=== PATIENT | male | born 1955 | race African-American/Black ===

== ENCOUNTER 2016-07-04 10:31 | Inpatient (IN) | payer OTHER ==
[2016-07-04 11:04] VITALS: BMI 26.4
--- NOTE | 2016-07-04 13:51 | HP ---
Admission [facility] Chief Complaint: DETOX TX FOR ALCOHOL Allergies/Adverse Reactions: Allergies Allergy/AdvReac Type Severity Reaction Status Date / Time zidovudine [From Retrovir] Allergy Severe Hives Verified 07/04/16 12:47 History of Present Illness: 60 Y/O AA/MALE WITH A HX OF ALCOHOL, HEROIN,COCAINE AND PERCOCETS DEPENDENCE SEEKING DETOX TX. TOX NEGATIVE FOR OPIOIDS. PT STATES HE IS ON ANTIBIOTICS FOR C/O FLANK PAIN "THEY SAY I HAVE AN INFECTION " . PT UNABLE TO STATE EXACT TYPE BUT CAME IN WITH AN ALMOST FULL BOTTLE OF CLINDAMYCIN. PT TO CONTINUE THERAPY WITH HIS MED. PT ALSO HAS A HX: HYPOKALEMIA Exam Limitations: No Limitations - Ebola screening Have you traveled outside of the country in the last 21 days: No Have you had contact with anyone from an Ebola affected area: No Have you been sick,other than usual withdrawal symptoms: No Do you have a fever: No - Review of Systems Constitutional: Chills, Night Sweats EENT: reports: Blurred Vision, Tearing, Nose Congestion, Dental Problems ( MISSING TEETH) Respiratory: reports: No Symptoms reported Cardiac: reports: Lightheadedness GI: reports: Constipated, Diarrhea, Nausea, Poor Appetite, Vomiting : reports: No Symptoms Reported Musculoskeletal: reports: Back Pain, Joint Pain, Muscle Pain, Other (HX NEUROPATHY) Integumentary: reports: Other (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) Neuro: reports: Headache, Numbness, Tingling, Tremors, Unsteady Gait, Dizziness , Other (HX NPERIPHERAL NEUROPATHY) Endocrine: reports: No Symptoms Reported Hematology: reports: No Symptoms Reported Psychiatric: reports: Orientated x3, Anxious, Depressed Other Systems: Reviewed and Negative Patient History - Patient Medical History Hx Anemia: No Hx Asthma: No Hx Chronic Obstructive Pulmonary Disease (COPD): No Hx Cancer: No Hx Cardiac Disorders: No Hx Congestive Heart Failure: No Hx Hypertension: Yes ( TAKES LISINOPRIL) Hx Hypercholesterolemia: No Hx Pacemaker: No HX Cerebrovascular Accident: No Hx Seizures: No Hx Dementia: No Hx Diabetes: Yes (TYPE 2 DM--METFORMIN ON HOLD BY PMD) Hx Gastrointestinal Disorders: Yes (GERD-OMEPRAZOLE) Hx Liver Disease: No Hx Genitourinary Disorders: No Hx Sexually Transmitted Disorders: No Hx Renal Disease (ESRD): No Hx Thyroid Disease: No Hx Human Immunodeficiency Virus (HIV): Yes (SINCE 1990;DX AIDS;ON TIVICAY.) Hx Hepatitis C: Yes (FAILED TX) Hx Depression: Yes (TAKES SEROQUEL FOR INSOMNIA) Hx Suicide Attempt: No (DENIES) Hx Bipolar Disorder: No Hx Schizophrenia: No Other Medical History: HX KAPOSI'S SARCOMA - Patient Surgical History Past Surgical History: No Hx Neurologic Surgery: No Hx Cataract Extraction: No Hx Cardiac Surgery: No Hx Lung Surgery: No Hx Breast Surgery: No Hx Breast Biopsy: No Hx Abdominal Surgery: No Hx Appendectomy: No Hx Cholecystectomy: No Hx Genitourinary Surgery: No Hx Orthopedic Surgery: No Anesthesia Reaction: No - PPD History Previous Implant?: Yes Documented Results: Negative w/proof Implanted On Prior [facility] Admission?: Yes Date: 02/05/16 Results: 0 mm PPD to be Administered?: No - Reproductive History Patient is a Female of Child Bearing Age (11 -55 yrs old): No (MALE) - Smoking Cessation Smoking history: Current every day smoker Have you smoked in the past 12 months: Yes Aproximately how many cigarettes per day: 20 Cigars Per Day: 0 Hx Chewing Tobacco Use: No Initiated information on smoking cessation: Yes 'Breaking Loose' booklet given: 07/04/16 - Substance & Tx. History Hx Alcohol Use: Yes (VODKA) Hx Substance Use: Yes (HEROIN/COCAINE/PERCOCETS) Substance Use Type: Alcohol, Cocaine, Heroin, Opiates Hx Substance Use Treatment: Yes ([facility]-DETOX) - Substances Abused Alcohol Route: Oral Frequency: Daily Amount used: 1 and 1/2 pints vodka Age of first use: 10 Date of Last Use: 07/03/16 Cocaine Route: Smoking Frequency: 3-6 times per week Amount used: $200 Age of first use: 12 Date of Last Use: 07/02/16 Heroin Route: Inhalation Frequency: 3-6 times per week Amount used: 3 bags Age of first use: 12 Date of Last Use: 07/02/16 Family Disease History - Family Disease History Family Disease History: Other: Father ( UNKNOWN CAUSE), Mother ( UNKNOWN CAUSE) Admission Physical Exam [facility] - Vital Signs Vital Signs: Vital Signs - 24 hr 07/04/16 11:02 Temperature 96.5 F L Pulse Rate 88 Respiratory 18 Rate Blood Pressure 140/96 - Physical General Appearance: Yes: Moderate Distress, Irritable, Anxious HEENTM: Yes: EOMI, Normocephalic, LEELA, Pharynx Normal, Nasal Congestion, Rhinorrhea Respiratory: Yes: Chest Non-Tender, Lungs Clear, Normal Breath Sounds, No Respiratory Distress Neck: Yes: No masses,lesions,Nodules, Supple, Trachea in good position Breast: Yes: Breast Exam Deferred Cardiology: Yes: Regular Rhythm, Regular Rate, S1, S2 Abdominal: Yes: Normal Bowel Sounds, Non Tender, Soft Genitourinary: Yes: Other (N/C) Back: Yes: Within Normal Limits Musculoskeletal: Yes: full range of Motion, Gait Steady Extremities: Yes: Normal Range of Motion, Non-Tender Neurological: Yes: anti tank missileman II-XII NML intact, Fully Oriented, Alert, Motor Strength 5/5 Integumentary: Yes: Dry, Warm Lymphatic: Yes: Within Normal Limits - Diagnostic (1) AIDS (acquired immunodeficiency syndrome), CD4 <=200 Current Visit: Yes Status: Chronic (2) Alcohol dependence with withdrawal Current Visit: Yes Status: Acute Qualifiers: Complication of substance-induced condition: uncomplicated Qualified Code(s): F10.230 - Alcohol dependence with withdrawal, uncomplicated (3) Nicotine dependence Current Visit: Yes Status: Acute Qualifiers: Nicotine product type: cigarettes Substance use status: in withdrawal Qualified Code(s): F17.213 - Nicotine dependence, cigarettes, with withdrawal (4) Cocaine dependence, uncomplicated Current Visit: Yes Status: Acute (5) Type 2 diabetes mellitus Current Visit: Yes Status: Chronic Comment: BLOOD SUGAR CURRENTLY UNDER CONTROL AND NOT TAKING METFORMIN 500 MG PO DAILY ANYMORE PER PATIENT. (6) History of Kaposi's sarcoma Current Visit: Yes Status: Acute Cleared for Admission [facility] - Detox or Rehab [facility] Level of Care: Medically Managed Detox Regimen/Protocol: Librium [facility] Breath Alcohol Content Breath Alcohol Content: 0 Urine Drug Screen - Results Drug Screen Negative: No Urine Drug Screen Results: YAMINI-Cocaine, BZO-Benzodiazepines
[2016-07-04] MEDS ORDERED: hydrOXYzine PAMOATE 25 MG CAPSULE (FP) PO PRN (14:01)
[2016-07-04] MEDS ORDERED: NICOTINE POLACRILEX 4 MG GUM BUC PRN (14:01)
[2016-07-04] MEDS ORDERED: MAG HYDROX/AL HYDROX/SIMETH 30 ML UNIT-DOSE CUP PO PRN (14:01)
[2016-07-04] MEDS ORDERED: guaiFENesin/D-METHORPHAN HB 10 ML UNIT-DOSE CUPS PO PRN (14:01)
[2016-07-04] MEDS ORDERED: LOPERAMIDE HCL 2 MG CAPSULE PO PRN (14:01)
[2016-07-04] MEDS ORDERED: MAGNESIUM HYDROX 2400MG/30ML ORAL SUSPENSION 30 ML CUP PO PRN (14:01)
[2016-07-04] MEDS ORDERED: chlordiazePOXIDE HCL 25 MG CAPSULE PO PRN (14:01)
[2016-07-04] MEDS ORDERED: IBUPROFEN 400 MG TABLET (FP) PO PRN (14:01)
[2016-07-04] MEDS ORDERED: ACETAMINOPHEN 325 MG TABLET (FP) PO PRN (14:01)
[2016-07-04] MEDS ORDERED: MAGNESIUM CITRATE 300 ML BOTTLE PO PRN (14:01)
[2016-07-04] MEDS ORDERED: P-EPHED 60MG/TRIPROLIDI 2.5MG TABLET PO PRN (14:01)
[2016-07-04] MEDS ORDERED: MENTHOL/PHENOL 1 EACH UD MM PRN (14:01)
[2016-07-04] MEDS ORDERED: chlordiazePOXIDE HCL 25 MG CAPSULE PO ONE (14:27)
[2016-07-04] MEDS: ASPIRIN 81 MG CHEWABLE TABLETS PO SCH (15:29)
[2016-07-04] MEDS: LISINOPRIL 10 MG TABLET (FP) PO SCH (15:29)
[2016-07-04] MEDS: GABAPENTIN 300 MG CAPSULE (FP) PO SCH ×2 (15:29→22:35)
[2016-07-04] MEDS: NICOTINE 21 MG/24 HOURS TOPICAL PATCH TD SCH (15:52)
[2016-07-04] MEDS: chlordiazePOXIDE HCL 25 MG CAPSULE PO SCH ×2 (17:20→22:34)
[2016-07-04] MEDS: PATIENT'S OWN MEDICATION (NON-FORMULARY) (Dolutegravir Sodium 50 MG) PO SCH (18:17)
[2016-07-04] MEDS: CLINDAMYCIN HCL 300 MG CAPSULE PO SCH (18:17)
[2016-07-04 18:55] LABS: URINE APPEARANCE CLEAR; URINE BILIRUBIN NEGATIVE (NEGATIVE); URINE BLOOD NEGATIVE (NEGATIVE); URINE COLOR AMBER; URINE GLUCOSE (UA) NEGATIVE (NEGATIVE); URINE KETONE NEGATIVE (NEGATIVE); URINE LEUK ESTERASE NEGATIVE (NEGATIVE); URINE NITRITE NEGATIVE (NEGATIVE); URINE UROBILINOGEN 4.0 E.U/dl E.U./dl (0.2-1.0)
[2016-07-04 19:20] LABS: URINE PROTEIN 2+ (NEGATIVE)
[2016-07-04 19:22] LABS: URINE MUCUS RARE; URINE RBC 2 /hpf (0-3); URINE WBC <1 /hpf (3-5)
[2016-07-04] MEDS: THIAMINE HCL 100 MG TABLET (FP) PO SCH (22:00)
[2016-07-04] MEDS ORDERED: diphenhydrAMINE HCL 25 MG CAPSULE (FP) PO PRN (22:08)
[2016-07-05] MEDS: CLINDAMYCIN HCL 300 MG CAPSULE PO SCH ×5 (00:01→23:08)
[2016-07-05] MEDS: GABAPENTIN 300 MG CAPSULE (FP) PO SCH ×3 (06:34→22:43)
[2016-07-05] MEDS: chlordiazePOXIDE HCL 25 MG CAPSULE PO SCH ×4 (06:34→22:43)
[2016-07-05 10:21] LABS: MCH 31.1 pg (25.7-33.7); MCHC 32.9 g/dl (32.0-35.9); MEAN CELL VOLUME 94.5 fl (80-96); MEAN PLT VOLUME 8.9 fl (7.5-11.1); PLATELET COUNT 138 K/MM3 (134-434); RDW 16.6 % (11.9-15.9); WHITE BLOOD COUNT 3.9 K/mm3 (4.0-10.0)
[2016-07-05] MEDS: LISINOPRIL 10 MG TABLET (FP) PO SCH (10:28)
[2016-07-05] MEDS: ASPIRIN 81 MG CHEWABLE TABLETS PO SCH (10:28)
[2016-07-05] MEDS: PRENATAL VITAMINS W/ FOLIC ACID TABLET (FP) PO SCH (10:28)
[2016-07-05] MEDS: PATIENT'S OWN MEDICATION (NON-FORMULARY) (Dolutegravir Sodium 50 MG) PO SCH (10:28)
[2016-07-05] MEDS: NICOTINE 21 MG/24 HOURS TOPICAL PATCH TD SCH (10:29)
--- NOTE | 2016-07-05 10:36 | CONSULT ---
[facility] Psychiatric Consult - Data Date of interview: 07/05/16 Admission source: [facility] Identifying data: First admission to [facility] for this 60 y/o AA male seeking detox treatment for alcohol,cocaine and opiate dependence.Patient is single without children,domiciled,disabled and supported on [employer] funds. Substance Abuse History: - Smoking Cessation. Smoking history: Current every day smoker. Have you smoked in the past 12 months: Yes. Aproximately how many cigarettes per day: 20. Cigars Per Day: 0. Hx Chewing Tobacco Use: No. Initiated information on smoking cessation: Yes. 'Breaking Loose' booklet given : 07/04/16. - Substance & Tx. History. Hx Alcohol Use: Yes (VODKA). Hx Substance Use: Yes (HEROIN/COCAINE/PERCOCETS). Substance Use Type: Alcohol, Cocaine, Heroin, Opiates. Hx Substance Use Treatment: Yes ([facility]DETOX). - Substances Abused. Alcohol. Route: Oral. Frequency: Daily. Amount used: 1 and 1/2 pints vodka. Age of first use: 10. Date of Last Use: 07/03/16. Cocaine. Route: Smoking. Frequency: 3-6 times per week. Amount used: $200. Age of first use: 12. Date of Last Use: 07/02/16. Heroin. Route: Inhalation. Frequency: 3-6 times per week. Amount used: 3 bags. Age of first use: 12. Date of Last Use: 07/02/16. Confirmed by patient. Medical History: HIV infection since 1990 (on ART agents),hepatitis C,GERD, hypertension,diabetes mellitus,neuropathy and a past history of Kaposi's sarcoma. Psychiatric History: Patient denies. Physical/Sexual Abuse/Trauma History: Patient denies. Additional Comment: Urine Drug Screen Results: YAMINI-Cocaine, BZO- Benzodiazepines.Noted. Mental Status Exam - Mental Status Exam Alert and Oriented to: Time, Place, Person Cognitive Function: Grossly Intact Patient Appearance: Unkempt, Disheveled Mood: Hostile, Irritable Affect: Mood Congruent, Blunted Patient Behavior: Fatigued, Uncooperative Speech Pattern: Clear Voice Loudness: Moderately Soft/Quiet Thought Process: Goal Oriented Thought Disorder: Not Present Hallucinations: Denies Suicidal Ideation: Denies Homicidal Ideation: Denies Insight/Judgement: Poor Sleep: Well Appetite: Good Gait/Station: Other (walks with a cane) Psychiatric Findings - Problem List ([place] 1, 2,3) (1) Alcohol dependence with withdrawal Current Visit: Yes Status: Acute Qualifiers: Complication of substance-induced condition: uncomplicated Qualified Code(s): F10.230 - Alcohol dependence with withdrawal, uncomplicated (2) Cocaine dependence, uncomplicated Current Visit: Yes Status: Acute (3) Nicotine dependence Current Visit: Yes Status: Acute Qualifiers: Nicotine product type: cigarettes Substance use status: in withdrawal Qualified Code(s): F17.213 - Nicotine dependence, cigarettes, with withdrawal (4) History of Kaposi's sarcoma Current Visit: Yes Status: Chronic (5) AIDS (acquired immunodeficiency syndrome), CD4 <=200 Current Visit: Yes Status: Chronic (6) Type 2 diabetes mellitus Current Visit: Yes Status: Chronic Comment: BLOOD SUGAR CURRENTLY UNDER CONTROL AND NOT TAKING METFORMIN 500 MG PO DAILY ANYMORE PER PATIENT. (7) Dry skin dermatitis Current Visit: Yes Status: Suspected - Initial Treatment Plan Initial Treatment Plan: Psychoeducation.Detoxification.Observation.
[2016-07-05 11:08] LABS: ALBUMIN 2.7 g/dl (3.4-5.0); ALK PHOS 91 U/L (45-117); ANION GAP 11 (8-16); BILIRUBIN,TOTAL 0.5 mg/dL (0.2-1.0); CALCIUM 7.9 mg/dL (8.5-10.1); CO2 23 mmol/L (21-32); CREATININE 0.6 mg/dL (0.7-1.3); GLUCOSE,RANDOM 114 mg/dL (74-106); SGOT/AST 49 U/L (15-37); SGPT/ALT 33 U/L (12-78); TOT PROT 6.5 g/dl (6.4-8.2)
--- NOTE | 2016-07-05 12:34 | EKG ---
Test Reason : Blood Pressure : / mmHG Vent. Rate : 089 BPM Atrial Rate : 089 BPM P-R Int : 184 ms QRS Dur : 090 ms QT Int : 400 ms P-R-T Axes : 055 032 045 degrees QTc Int : 486 ms NORMAL SINUS RHYTHM POSSIBLE LEFT ATRIAL ENLARGEMENT NONSPECIFIC T WAVE ABNORMALITY PROLONGED QT ABNORMAL ECG NO PREVIOUS ECGS AVAILABLE Confirmed by MIKE MILTON MD ([id number]) on 07/05/2016 12:34:10 PM Referred By: Confirmed By:MIKE MILTON MD
--- NOTE | 2016-07-05 15:27 | PN ---
[facility] CIWA - CIWA Score Nausea/Vomitin-No Nausea/No Vomiting Muscle Tremors: 4-Moderate,w/Arms Extend Anxiety: 3 Agitation: 3 Paroxysmal Sweats: 3 Orientation: 0-Oriented Tacttile Disturbances: 0-None Auditory Disturbances: 0-None Visual Disturbances: 0-None Headache: 0-None Present CIWA-Ar Total Score: 13 S Progress Note (SOAP) Subjective: Anxiety,tremors,sweating,interrupted sleep,restless Objective: 07/05/16 15:25 Vital Signs - 8 hr 07/05/16 09:38 Temperature 97.4 F L Pulse Rate 88 Respiratory 18 Rate Blood Pressure 151/92 Laboratory Tests 07/04/16 07/04/16 07/04/16 13:00 15:05 16:30 WBC RBC Hgb Hct MCV MCHC RDW Plt Count MPV Sodium Potassium Chloride Carbon Dioxide Anion Gap BUN Creatinine Creat Clearance w eGFR POC Glucometer 89 101 Random Glucose Calcium Total Bilirubin AST ALT Alkaline Phosphatase Total Protein Albumin Urine Color Irene Urine Appearance Clear Urine pH 5.0 Ur Specific [place] 1.015 Urine Protein 2+ H Urine Glucose (UA) Negative Urine Ketones Negative Urine Blood Negative Urine Nitrite Negative Urine Bilirubin Negative Urine Urobilinogen 4.0 e.u/dl Ur Leukocyte Esterase Negative Urine RBC 2 Urine WBC <1 Ur Epithelial Cells Rare Urine Mucus Rare RPR Titer 07/05/16 07/05/16 07/05/16 06:37 07:00 07:00 WBC 3.9 L RBC 4.06 Hgb 12.6 D Hct 38.4 D MCV 94.5 MCHC 32.9 RDW 16.6 H Plt Count 138 D MPV 8.9 Sodium 143 Potassium 3.4 L Chloride 109 H Carbon Dioxide 23 Anion Gap 11 BUN 8 Creatinine 0.6 L Creat Clearance w eGFR > 60 POC Glucometer 111 Random Glucose 114 H Calcium 7.9 L Total Bilirubin 0.5 AST 49 H D ALT 33 D Alkaline Phosphatase 91 Total Protein 6.5 Albumin 2.7 L Urine Color Urine Appearance Urine pH Ur Specific [place] Urine Protein Urine Glucose (UA) Urine Ketones Urine Blood Urine Nitrite Urine Bilirubin Urine Urobilinogen Ur Leukocyte Esterase Urine RBC Urine WBC Ur Epithelial Cells Urine Mucus RPR Titer 07/05/16 07:00 WBC RBC Hgb Hct MCV MCHC RDW Plt Count MPV Sodium Potassium Chloride Carbon Dioxide Anion Gap BUN Creatinine Creat Clearance w eGFR POC Glucometer Random Glucose Calcium Total Bilirubin AST ALT Alkaline Phosphatase Total Protein Albumin Urine Color Urine Appearance Urine pH Ur Specific [place] Urine Protein Urine Glucose (UA) Urine Ketones Urine Blood Urine Nitrite Urine Bilirubin Urine Urobilinogen Ur Leukocyte Esterase Urine RBC Urine WBC Ur Epithelial Cells Urine Mucus RPR Titer Nonreactive labs noted Assessment: 07/05/16 15:27 Withdrawal sx. Plan: Continue detox
[2016-07-05] MEDS: THIAMINE HCL 100 MG TABLET (FP) PO SCH (22:43)
[2016-07-05] MEDS: diphenhydrAMINE HCL 50 MG CAPSULE PO PRN (22:44)
[2016-07-06] MEDS: chlordiazePOXIDE HCL 25 MG CAPSULE PO SCH ×2 (06:04→10:28)
[2016-07-06] MEDS: GABAPENTIN 300 MG CAPSULE (FP) PO SCH ×3 (06:04→22:25)
[2016-07-06] MEDS: CLINDAMYCIN HCL 300 MG CAPSULE PO SCH ×4 (06:22→23:08)
[2016-07-06] MEDS: ASPIRIN 81 MG CHEWABLE TABLETS PO SCH (10:27)
[2016-07-06] MEDS: PATIENT'S OWN MEDICATION (NON-FORMULARY) (Dolutegravir Sodium 50 MG) PO SCH (10:27)
[2016-07-06] MEDS: PRENATAL VITAMINS W/ FOLIC ACID TABLET (FP) PO SCH (10:27)
[2016-07-06] MEDS: LISINOPRIL 10 MG TABLET (FP) PO SCH (10:28)
[2016-07-06] MEDS: NICOTINE 21 MG/24 HOURS TOPICAL PATCH TD SCH (10:28)
[2016-07-06] MEDS: AMMONIUM LACTATE 12% LOTION 225 GM BOTTLE TP SCH ×2 (11:03→22:25)
--- NOTE | 2016-07-06 14:06 | PN ---
[facility] CIWA - CIWA Score Nausea/Vomitin Muscle Tremors: 3 Anxiety: 4-Mod. Anxious/Guarded Agitation: 3 Paroxysmal Sweats: 3 Orientation: 0-Oriented Tacttile Disturbances: 3-Moderate Itch/Numb/Burn Auditory Disturbances: 0-None Visual Disturbances: 0-None Headache: 0-None Present CIWA-Ar Total Score: 21 S Progress Note (SOAP) Subjective: Diarrhea, Vomiting, Sweating, Body Aches, Tremors. Objective: PT. A & O X 3, OBSERVED AMBULATING ON UNIT WITH ASSISTANCE OF CANE. 07/06/16 14:04 Laboratory Last Values WBC 3.9 K/mm3 (4.0-10.0) L 07/05/16 07:00 RBC 4.06 M/mm3 (4.00-5.60) 07/05/16 07:00 Hgb 12.6 GM/dL (11.7-16.9) D 07/05/16 07:00 Hct 38.4 % (35.4-49) D 07/05/16 07:00 MCV 94.5 fl (80-96) 07/05/16 07:00 MCHC 32.9 g/dl (32.0-35.9) 07/05/16 07:00 RDW 16.6 % (11.9-15.9) H 07/05/16 07:00 Plt Count 138 K/MM3 (134-434) D 07/05/16 07:00 MPV 8.9 fl (7.5-11.1) 07/05/16 07:00 Sodium 143 mmol/L (136-145) 07/05/16 07:00 Potassium 3.4 mmol/L (3.5-5.1) L 07/05/16 07:00 Chloride 109 mmol/L (98-107) H 07/05/16 07:00 Carbon Dioxide 23 mmol/L (21-32) 07/05/16 07:00 Anion Gap 11 (8-16) 07/05/16 07:00 BUN 8 mg/dL (7-18) 07/05/16 07:00 Creatinine 0.6 mg/dL (0.7-1.3) L 07/05/16 07:00 Creat Clearance w eGFR > 60 (>60) 07/05/16 07:00 POC Glucometer 101 UNITS (()) 07/06/16 06:03 Random Glucose 114 mg/dL (74-106) H 07/05/16 07:00 Calcium 7.9 mg/dL (8.5-10.1) L 07/05/16 07:00 Total Bilirubin 0.5 mg/dL (0.2-1.0) 07/05/16 07:00 AST 49 U/L (15-37) H D 07/05/16 07:00 ALT 33 U/L (12-78) D 07/05/16 07:00 Alkaline Phosphatase 91 U/L (45-117) 07/05/16 07:00 Total Protein 6.5 g/dl (6.4-8.2) 07/05/16 07:00 Albumin 2.7 g/dl (3.4-5.0) L 07/05/16 07:00 Urine Color Irene 07/04/16 13:00 Urine Appearance Clear 07/04/16 13:00 Urine pH 5.0 (5.0-8.0) 07/04/16 13:00 Ur Specific [place] 1.015 (1.001-1.035) 07/04/16 13:00 Urine Protein 2+ (NEGATIVE) H 07/04/16 13:00 Urine Glucose (UA) Negative (NEGATIVE) 07/04/16 13:00 Urine Ketones Negative (NEGATIVE) 07/04/16 13:00 Urine Blood Negative (NEGATIVE) 07/04/16 13:00 Urine Nitrite Negative (NEGATIVE) 07/04/16 13:00 Urine Bilirubin Negative (NEGATIVE) 07/04/16 13:00 Urine Urobilinogen 4.0 e.u/dl E.U./dl (0.2-1.0) 07/04/16 13:00 Ur Leukocyte Esterase Negative (NEGATIVE) 07/04/16 13:00 Urine RBC 2 /hpf (0-3) 07/04/16 13:00 Urine WBC <1 /hpf (3-5) 07/04/16 13:00 Ur Epithelial Cells Rare /hpf (FEW) 07/04/16 13:00 Urine Mucus Rare 07/04/16 13:00 RPR Titer Nonreactive (NONREACTIVE) 07/05/16 07:00 LABS NOTED. Assessment: 07/06/16 14:07 WITHDRAWAL SYMPTOMS. Plan: CONTINUE DETOX. K, 20 MEQ BID. PRN IMMODIUM FOR DIARRHEA. ADVISED PATIENT TO FOLLOW-UP WITH [facility] / REHAB MEDICAL PROVIDER AFTER DISCHARGE FROM DETOX FOR GENERAL MEDICAL ASSESSMENT AND FOR ANY ABNORMAL ADMISSION LAB VALUES.
[2016-07-06] MEDS ORDERED: POTASSIUM CHLORIDE TABS 20 MEQ TABLET.ER (FP) PO ONE (15:00)
[2016-07-06] MEDS: chlordiazePOXIDE 5 MG CAPSULE PO SCH ×2 (17:39→22:25)
[2016-07-06] MEDS: THIAMINE HCL 100 MG TABLET (FP) PO SCH (22:24)
[2016-07-06] MEDS: diphenhydrAMINE HCL 50 MG CAPSULE PO PRN (22:24)
[2016-07-06] MEDS: POTASSIUM CHLORIDE TABS 20 MEQ TABLET.ER (FP) PO SCH (22:25)
[2016-07-07] MEDS: GABAPENTIN 300 MG CAPSULE (FP) PO SCH ×3 (05:50→22:29)
[2016-07-07] MEDS: chlordiazePOXIDE 5 MG CAPSULE PO SCH ×2 (05:50→10:25)
[2016-07-07] MEDS: CLINDAMYCIN HCL 300 MG CAPSULE PO SCH ×4 (05:50→23:06)
[2016-07-07] MEDS ORDERED: cloNIDine HCL 0.1 MG TABLET PO ONE (07:30)
--- NOTE | 2016-07-07 07:47 | PN ---
[facility] Progress Note Note: Last Vital Signs Temp Pulse Resp BP Pulse Ox 96.4 F L 88 18 154/100 07/07/16 06:44 07/07/16 06:44 07/07/16 06:44 07/07/16 06:44 BP ELEVATED 0.1MG OF CLONIDINE ONE TIME DOSE ORDERED WILL CONTINUE TO MONITOR
[2016-07-07] MEDS: NICOTINE 21 MG/24 HOURS TOPICAL PATCH TD SCH (10:25)
[2016-07-07] MEDS: PRENATAL VITAMINS W/ FOLIC ACID TABLET (FP) PO SCH (10:25)
[2016-07-07] MEDS: PATIENT'S OWN MEDICATION (NON-FORMULARY) (Dolutegravir Sodium 50 MG) PO SCH (10:25)
[2016-07-07] MEDS: ASPIRIN 81 MG CHEWABLE TABLETS PO SCH (10:25)
[2016-07-07] MEDS: AMMONIUM LACTATE 12% LOTION 225 GM BOTTLE TP SCH ×2 (10:25→23:07)
[2016-07-07] MEDS: LISINOPRIL 10 MG TABLET (FP) PO SCH (10:25)
[2016-07-07] MEDS: POTASSIUM CHLORIDE TABS 20 MEQ TABLET.ER (FP) PO SCH ×2 (10:25→22:29)
--- NOTE | 2016-07-07 15:45 | PN ---
[facility] Progress Note (SOAP) Subjective: Interrupted sleep, Diarrhea, Body aches, Back Ache. Objective: PT. A & O X 3, OBSERVED AMBULATING ON UNIT WITH ASSISTANCE OF A CANE. 07/07/16 15:44 Vital Signs Temperature 98.2 F 07/07/16 13:26 Pulse Rate 80 07/07/16 13:26 Respiratory Rate 20 07/07/16 13:26 Blood Pressure 149/93 07/07/16 13:31 O2 Sat by Pulse Oximetry (%) Laboratory Last Values WBC 3.9 K/mm3 (4.0-10.0) L 07/05/16 07:00 RBC 4.06 M/mm3 (4.00-5.60) 07/05/16 07:00 Hgb 12.6 GM/dL (11.7-16.9) D 07/05/16 07:00 Hct 38.4 % (35.4-49) D 07/05/16 07:00 MCV 94.5 fl (80-96) 07/05/16 07:00 MCHC 32.9 g/dl (32.0-35.9) 07/05/16 07:00 RDW 16.6 % (11.9-15.9) H 07/05/16 07:00 Plt Count 138 K/MM3 (134-434) D 07/05/16 07:00 MPV 8.9 fl (7.5-11.1) 07/05/16 07:00 Sodium 143 mmol/L (136-145) 07/05/16 07:00 Potassium 3.4 mmol/L (3.5-5.1) L 07/05/16 07:00 Chloride 109 mmol/L (98-107) H 07/05/16 07:00 Carbon Dioxide 23 mmol/L (21-32) 07/05/16 07:00 Anion Gap 11 (8-16) 07/05/16 07:00 BUN 8 mg/dL (7-18) 07/05/16 07:00 Creatinine 0.6 mg/dL (0.7-1.3) L 07/05/16 07:00 Creat Clearance w eGFR > 60 (>60) 07/05/16 07:00 POC Glucometer 118 UNITS (()) 07/07/16 05:52 Random Glucose 114 mg/dL (74-106) H 07/05/16 07:00 Calcium 7.9 mg/dL (8.5-10.1) L 07/05/16 07:00 Total Bilirubin 0.5 mg/dL (0.2-1.0) 07/05/16 07:00 AST 49 U/L (15-37) H D 07/05/16 07:00 ALT 33 U/L (12-78) D 07/05/16 07:00 Alkaline Phosphatase 91 U/L (45-117) 07/05/16 07:00 Total Protein 6.5 g/dl (6.4-8.2) 07/05/16 07:00 Albumin 2.7 g/dl (3.4-5.0) L 07/05/16 07:00 Urine Color Irene 07/04/16 13:00 Urine Appearance Clear 07/04/16 13:00 Urine pH 5.0 (5.0-8.0) 07/04/16 13:00 Ur Specific [place] 1.015 (1.001-1.035) 07/04/16 13:00 Urine Protein 2+ (NEGATIVE) H 07/04/16 13:00 Urine Glucose (UA) Negative (NEGATIVE) 07/04/16 13:00 Urine Ketones Negative (NEGATIVE) 07/04/16 13:00 Urine Blood Negative (NEGATIVE) 07/04/16 13:00 Urine Nitrite Negative (NEGATIVE) 07/04/16 13:00 Urine Bilirubin Negative (NEGATIVE) 07/04/16 13:00 Urine Urobilinogen 4.0 e.u/dl E.U./dl (0.2-1.0) 07/04/16 13:00 Ur Leukocyte Esterase Negative (NEGATIVE) 07/04/16 13:00 Urine RBC 2 /hpf (0-3) 07/04/16 13:00 Urine WBC <1 /hpf (3-5) 07/04/16 13:00 Ur Epithelial Cells Rare /hpf (FEW) 07/04/16 13:00 Urine Mucus Rare 07/04/16 13:00 RPR Titer Nonreactive (NONREACTIVE) 07/05/16 07:00 LABS NOTED. Assessment: 07/07/16 15:44 WITHDRAWAL SYMPTOMS. Plan: CONTINUE DETOX. PRN IMMODIUM FOR DIARRHEA. ADVISED PATIENT TO FOLLOW-UP WITH [facility] / REHAB MEDICAL PROVIDER AFTER DISCHARGER FROM DETOX FOR GENERAL MEDICAL ASSESSMENT AND FOR ABNORMAL ADMISSION LAB VALUES.
[2016-07-07] MEDS: chlordiazePOXIDE HCL 10 MG CAPSULE PO SCH ×2 (17:44→22:29)
[2016-07-07] MEDS: THIAMINE HCL 100 MG TABLET (FP) PO SCH (22:29)
[2016-07-07] MEDS: diphenhydrAMINE HCL 50 MG CAPSULE PO PRN (22:30)
[2016-07-08] MEDS: CLINDAMYCIN HCL 300 MG CAPSULE PO SCH (05:59)
[2016-07-08] MEDS: GABAPENTIN 300 MG CAPSULE (FP) PO SCH (05:59)
[2016-07-08] MEDS: chlordiazePOXIDE HCL 10 MG CAPSULE PO SCH ×3 (06:00→10:24)
[2016-07-08] MEDS: PRENATAL VITAMINS W/ FOLIC ACID TABLET (FP) PO SCH (10:23)
[2016-07-08] MEDS: POTASSIUM CHLORIDE TABS 20 MEQ TABLET.ER (FP) PO SCH (10:23)
[2016-07-08] MEDS: AMMONIUM LACTATE 12% LOTION 225 GM BOTTLE TP SCH (10:23)
[2016-07-08] MEDS: NICOTINE 21 MG/24 HOURS TOPICAL PATCH TD SCH (10:23)
[2016-07-08] MEDS: PATIENT'S OWN MEDICATION (NON-FORMULARY) (Dolutegravir Sodium 50 MG) PO SCH (10:23)
[2016-07-08] MEDS: ASPIRIN 81 MG CHEWABLE TABLETS PO SCH (10:23)
[2016-07-08] MEDS: LISINOPRIL 10 MG TABLET (FP) PO SCH (10:24)
[2016-07-08 10:44] VITALS: BP 163/108; PULSE 86; TEMP 95.5
--- NOTE | 2016-07-08 12:45 | DS ---
[facility] Detox Discharge Summary Admission Date: 07/04/16 Discharge Date: 07/08/16 - History Present History: Alcohol Dependence, Cocaine Dependence, Opioid Dependence Pertinent Past History: HTN DMT2 GERD Hepatitis C HIV/AIDS Hypokalemia: replenished during hospital stay - Physical Exam Results Vital Signs: Vital Signs Temperature 95.5 F L 07/08/16 10:44 Pulse Rate 86 07/08/16 10:44 Respiratory Rate 20 07/08/16 10:44 Blood Pressure 163/108 07/08/16 10:44 O2 Sat by Pulse Oximetry (%) Pertinent Admission Physical Exam Findings: Withdrawal symptoms Laboratory Tests 07/04/16 07/04/16 07/04/16 13:00 15:05 16:30 WBC RBC Hgb Hct MCV MCHC RDW Plt Count MPV Sodium Potassium Chloride Carbon Dioxide Anion Gap BUN Creatinine Creat Clearance w eGFR POC Glucometer 89 101 Random Glucose Calcium Total Bilirubin AST ALT Alkaline Phosphatase Total Protein Albumin Urine Color Irene Urine Appearance Clear Urine pH 5.0 Ur Specific [place] 1.015 Urine Protein 2+ H Urine Glucose (UA) Negative Urine Ketones Negative Urine Blood Negative Urine Nitrite Negative Urine Bilirubin Negative Urine Urobilinogen 4.0 e.u/dl Ur Leukocyte Esterase Negative Urine RBC 2 Urine WBC <1 Ur Epithelial Cells Rare Urine Mucus Rare RPR Titer 07/05/16 07/05/16 07/05/16 06:37 07:00 07:00 WBC 3.9 L RBC 4.06 Hgb 12.6 D Hct 38.4 D MCV 94.5 MCHC 32.9 RDW 16.6 H Plt Count 138 D MPV 8.9 Sodium 143 Potassium 3.4 L Chloride 109 H Carbon Dioxide 23 Anion Gap 11 BUN 8 Creatinine 0.6 L Creat Clearance w eGFR > 60 POC Glucometer 111 Random Glucose 114 H Calcium 7.9 L Total Bilirubin 0.5 AST 49 H D ALT 33 D Alkaline Phosphatase 91 Total Protein 6.5 Albumin 2.7 L Urine Color Urine Appearance Urine pH Ur Specific [place] Urine Protein Urine Glucose (UA) Urine Ketones Urine Blood Urine Nitrite Urine Bilirubin Urine Urobilinogen Ur Leukocyte Esterase Urine RBC Urine WBC Ur Epithelial Cells Urine Mucus RPR Titer 07/05/16 07/05/16 07/06/16 07:00 16:22 06:03 WBC RBC Hgb Hct MCV MCHC RDW Plt Count MPV Sodium Potassium Chloride Carbon Dioxide Anion Gap BUN Creatinine Creat Clearance w eGFR POC Glucometer 100 101 Random Glucose Calcium Total Bilirubin AST ALT Alkaline Phosphatase Total Protein Albumin Urine Color Urine Appearance Urine pH Ur Specific [place] Urine Protein Urine Glucose (UA) Urine Ketones Urine Blood Urine Nitrite Urine Bilirubin Urine Urobilinogen Ur Leukocyte Esterase Urine RBC Urine WBC Ur Epithelial Cells Urine Mucus RPR Titer Nonreactive 07/06/16 07/07/16 07/07/16 16:37 05:52 16:23 WBC RBC Hgb Hct MCV MCHC RDW Plt Count MPV Sodium Potassium Chloride Carbon Dioxide Anion Gap BUN Creatinine Creat Clearance w eGFR POC Glucometer 158 118 95 Random Glucose Calcium Total Bilirubin AST ALT Alkaline Phosphatase Total Protein Albumin Urine Color Urine Appearance Urine pH Ur Specific [place] Urine Protein Urine Glucose (UA) Urine Ketones Urine Blood Urine Nitrite Urine Bilirubin Urine Urobilinogen Ur Leukocyte Esterase Urine RBC Urine WBC Ur Epithelial Cells Urine Mucus RPR Titer 07/08/16 05:58 WBC RBC Hgb Hct MCV MCHC RDW Plt Count MPV Sodium Potassium Chloride Carbon Dioxide Anion Gap BUN Creatinine Creat Clearance w eGFR POC Glucometer 184 Random Glucose Calcium Total Bilirubin AST ALT Alkaline Phosphatase Total Protein Albumin Urine Color Urine Appearance Urine pH Ur Specific [place] Urine Protein Urine Glucose (UA) Urine Ketones Urine Blood Urine Nitrite Urine Bilirubin Urine Urobilinogen Ur Leukocyte Esterase Urine RBC Urine WBC Ur Epithelial Cells Urine Mucus RPR Titer Labs noted: K 3.4 - Treatment Hospital Course: Detox Protocol Followed, Detoxed Safely, Responded well, Discharged Condition Good - Medication Discharge Medications: Ambulatory Orders Aspirin [ASA -] 81 mg PO DAILY 07/04/16 Clindamycin [Cleocin -] 600 mg PO Q6H 07/04/16 Dolutegravir Sodium [Tivicay] 50 mg PO DAILY 07/04/16 Gabapentin [Neurontin -] 300 mg PO Q8H 07/04/16 Lisinopril [Prinivil] 10 mg PO DAILY 07/04/16 Omeprazole 40 mg PO DAILY 07/04/16 Risperidone [Risperdal] 1 mg PO BID 07/04/16 - Diagnosis (1) Cocaine dependence, uncomplicated Current Visit: Yes Status: Chronic (2) Nicotine dependence Current Visit: Yes Status: Chronic Qualifiers: Nicotine product type: cigarettes Substance use status: in withdrawal Qualified Code(s): F17.213 - Nicotine dependence, cigarettes, with withdrawal (3) Type 2 diabetes mellitus Current Visit: Yes Status: Chronic Qualifiers: Diabetes mellitus complication status: without complication (4) Alcohol dependence with uncomplicated withdrawal Current Visit: Yes Status: Acute (5) Hypertension, essential Current Visit: Yes Status: Chronic (6) GERD (gastroesophageal reflux disease) Current Visit: Yes Status: Chronic (7) Depression Current Visit: Yes Status: Chronic (8) Hepatitis C virus infection without hepatic coma Current Visit: Yes Status: Chronic Qualifiers: Viral hepatitis chronicity: chronic Qualified Code(s): B18.2 - Chronic viral hepatitis C (9) Hypokalemia Current Visit: Yes Status: Acute (10) Opioid dependence Current Visit: Yes Status: Chronic (11) AIDS (acquired immune deficiency syndrome) Current Visit: Yes Status: Chronic - AMA Did Patient Leave Against Medical Advice: No
== END 2016-07-08 12:40 | disposition other institution (70) | DRG 773 ==
LOC: YASAS 10:31 → Y3N 14:24
PROVIDERS: ADMIT Internal Medicine; ATTEND Internal Medicine
PROC: HZ2ZZZZ Detoxification Services for Substance Abuse Treatment (ICD-10-PCS; principal; 2016-07-04)
DX: F10.230 Alcohol dependence with withdrawal, uncomplicated (principal); F11.20 Opioid dependence, uncomplicated; F14.20 Cocaine dependence, uncomplicated; F12.20 Cannabis dependence, uncomplicated; F17.210 Nicotine dependence, cigarettes, uncomplicated; F32.9 Major depressive disorder, single episode, unspecified; B20 Human immunodeficiency virus [HIV] disease; E11.9 Type 2 diabetes mellitus without complications; I10 Essential (primary) hypertension; K21.9 Gastro-esophageal reflux disease without esophagitis; B18.2 Chronic viral hepatitis C; E87.6 Hypokalemia; L85.3 Xerosis cutis
CPT/HCPCS: 36415; 80053; 81003; 81015; 85027; 86593; 93005; 93010

== ENCOUNTER 2016-07-08 12:59 | Inpatient (IN) | payer OTHER ==
[2016-07-08] MEDS ORDERED: PT OWN MED DRAWER 7, Y5N ONE ×2 (14:53→22:15)
--- NOTE | 2016-07-08 15:04 | HP ---
[facility] Rehab Assess/Revision - Admission History Admitted to Rehab from: [facility] Date of Admission to Rehab: 07/09/16 - Vital signs Vital Signs: Vital Signs Period Temp Pulse Resp BP Sys/Bosch Pulse Ox Last 24 Hr 98.6 F 86 20 140/90 - Findings Detox History & Physical reviewed: Yes Concur with findings: Yes Comments/Additional Findings: for rehab as protocol
[2016-07-08] MEDS: GABAPENTIN 300 MG CAPSULE (FP) PO SCH ×2 (15:46→22:11)
[2016-07-08] MEDS ORDERED: P-EPHED 60MG/TRIPROLIDI 2.5MG TABLET PO PRN (22:48)
[2016-07-08] MEDS ORDERED: guaiFENesin/D-METHORPHAN HB 10 ML UNIT-DOSE CUPS PO PRN (22:48)
[2016-07-08] MEDS ORDERED: MAGNESIUM HYDROX 2400MG/30ML ORAL SUSPENSION 30 ML CUP PO PRN (22:48)
[2016-07-08] MEDS ORDERED: MAG HYDROX/AL HYDROX/SIMETH 30 ML UNIT-DOSE CUP PO PRN (22:48)
[2016-07-08] MEDS ORDERED: hydrOXYzine PAMOATE 50 MG CAPSULE (FP) PO PRN (22:48)
[2016-07-08] MEDS ORDERED: LOPERAMIDE HCL 2 MG CAPSULE PO PRN (22:48)
[2016-07-08] MEDS ORDERED: MAGNESIUM CITRATE 300 ML BOTTLE PO PRN (22:48)
[2016-07-08] MEDS ORDERED: IBUPROFEN 400 MG TABLET (FP) PO PRN (22:48)
[2016-07-08] MEDS ORDERED: MENTHOL/PHENOL 1 EACH UD MM PRN (22:48)
[2016-07-08] MEDS ORDERED: ACETAMINOPHEN 325 MG TABLET (FP) PO PRN (22:48)
[2016-07-09] MEDS: GABAPENTIN 300 MG CAPSULE (FP) PO SCH ×3 (06:03→21:04)
--- NOTE | 2016-07-09 07:06 | HP ---
Psychiatrist Admission - Data Date of interview: 07/09/16 Admission source: 3N Identifying data: This is the second [facility] admission for this 60 years old single Black male, unemployed on HASA, domiciled seeking rehab treatment for alcohol, heroin and cocaine Medical History: Significant for HTN, type 2 DM, GERD, Hep C, AIDS, Kaposi Sarcoma and dry skin Dermatitis . Smokes 1ppd Psychiatric History: Reports being diagnosed with Schizophrenia approximately 10 years ago. Reports 5 previous psychiatric admissions all to [facility]. Claims that most recent one was in in June 2016 for hearing voices. Reports that he stayed there for 2-3 weeks and treated with Zyprexa and Celexa. Told commercial lines underwriter that he does not recall dosages of these medications. Reports that he is non-compliant to psychiatric services and medication. He linn not want to take psychotropic medication at this time. Denies previous history of suicidal attempt. At present, denies experiences psychotic symptoms as well as SI/HI Physical/Sexual Abuse/Trauma History: Denies history of emotional, physical or sexual abuse as well as DV relationship Additional Comment: Denies any criminal history Vital Signs: Vital Signs - 24 hr 07/08/16 07/09/16 07/09/16 13:34 00:30 03:30 Temperature 98.6 F Pulse Rate 86 Respiratory 20 18 17 Rate Blood Pressure 140/90 Allergies/Adverse Reactions: Allergies Allergy/AdvReac Type Severity Reaction Status Date / Time zidovudine [From Retrovir] Allergy Severe Hives Verified 07/04/16 12:47 Date of last physical exam: 07/04/16 Concur with the findings of this exam: Yes - Substance Abuse/Tx History Hx Alcohol Use: Yes Hx Substance Use: Yes Substance Use Type: Alcohol (Started drinking alcohol at age 10, consumes i.5 pints of vodka daily. Last drink on 07/03/16), Cocaine (Started smoking crack cocaine at age 12, consumes $200 worth 3-6 times weekly. Last Smoked on 07/02/16) , Heroin (Started using heroin at age 12, Consumes 3 bags 3-6 times weekly. Last used on 07/02/16) Hx Substance Use Treatment: Yes (One inpt detox & one inpt rehab @ [facility]) - Admission Criteria Previous failed treatment: Yes Poor recovery environment: Yes Comorbidities: Yes Lacks judgement: Yes Mental Status Exam - Mental Status Exam Alert and Oriented to: Time, Place, Person Cognitive Function: Fair Patient Appearance: Well Groomed Mood: Hopeful, Euthymic Affect: Blunted Patient Behavior: Cooperative Speech Pattern: Clear Voice Loudness: Normal Thought Process: Intact Hallucinations: Denies Suicidal Ideation: Denies Homicidal Ideation: Denies Insight/Judgement: Fair Sleep: Well Appetite: Good Muscle strength/Tone: Normal Gait/Station: Normal Psychiatric Findings - Problem List ([facility] 1, 2,3) (1) Alcohol dependence with uncomplicated withdrawal Current Visit: No Status: Acute (2) Opioid dependence Current Visit: No Status: Chronic (3) Cocaine dependence, uncomplicated Current Visit: No Status: Chronic (4) Nicotine dependence Current Visit: No Status: Chronic Qualifiers: Nicotine product type: cigarettes Substance use status: in withdrawal Qualified Code(s): F17.213 - Nicotine dependence, cigarettes, with withdrawal (5) Schizophrenia Current Visit: Yes Status: Acute (6) AIDS (acquired immune deficiency syndrome) Current Visit: No Status: Chronic (7) History of Kaposi's sarcoma Current Visit: No Status: Chronic (8) GERD (gastroesophageal reflux disease) Current Visit: No Status: Chronic (9) Hepatitis C virus infection without hepatic coma Current Visit: No Status: Chronic Qualifiers: Viral hepatitis chronicity: chronic Qualified Code(s): B18.2 - Chronic viral hepatitis C (10) Hypertension, essential Current Visit: No Status: Chronic (11) Type 2 diabetes mellitus Current Visit: No Status: Chronic Qualifiers: Diabetes mellitus complication status: without complication Comment: BLOOD SUGAR CURRENTLY UNDER CONTROL AND NOT TAKING METFORMIN 500 MG PO DAILY ANYMORE PER PATIENT. (12) Dry skin dermatitis Current Visit: No Status: Suspected - Initial Treatment Plan Initial Treatment Plan: 1) Patient is not willing to be on psychotropic medication at this time. We will continue to encourage patient to take medication. 2) Monitor for sign of decompensation
[2016-07-09] MEDS: LISINOPRIL 10 MG TABLET (FP) PO SCH (09:47)
[2016-07-09] MEDS: PANTOPRAZOLE 40 MG TABLET (FP) PO SCH (09:47)
[2016-07-09] MEDS: PRENATAL VITAMINS W/ FOLIC ACID TABLET (FP) PO SCH (09:47)
[2016-07-09] MEDS: ASPIRIN 81 MG CHEWABLE TABLETS PO SCH (09:47)
[2016-07-09] MEDS ORDERED: PT OWN MED DRAWER 7, Y5N ONE ×2 (09:51→17:40)
[2016-07-09] MEDS: PATIENT'S OWN MEDICATION (NON-FORMULARY) (Dolutegravir Sodium 50 MG) PO SCH (11:00)
[2016-07-09] MEDS: CLINDAMYCIN HCL 300 MG CAPSULE PO SCH ×3 (12:04→17:40)
[2016-07-09] MEDS: diphenhydrAMINE HCL 50 MG CAPSULE PO PRN (21:04)
[2016-07-09] MEDS: THIAMINE HCL 100 MG TABLET (FP) PO SCH (21:04)
[2016-07-10] MEDS: CLINDAMYCIN HCL 300 MG CAPSULE PO SCH ×6 (06:16→23:41)
[2016-07-10] MEDS: GABAPENTIN 300 MG CAPSULE (FP) PO SCH (06:16)
[2016-07-10 06:33] VITALS: TEMP 98
[2016-07-10] MEDS: PATIENT'S OWN MEDICATION (NON-FORMULARY) (Dolutegravir Sodium 50 MG) PO SCH (09:54)
[2016-07-10] MEDS: PANTOPRAZOLE 40 MG TABLET (FP) PO SCH (09:54)
[2016-07-10] MEDS: PRENATAL VITAMINS W/ FOLIC ACID TABLET (FP) PO SCH (09:54)
[2016-07-10] MEDS: LISINOPRIL 10 MG TABLET (FP) PO SCH (09:54)
[2016-07-10] MEDS: ASPIRIN 81 MG CHEWABLE TABLETS PO SCH (09:54)
[2016-07-10] MEDS: GABAPENTIN 400 MG CAPSULE (FP) PO SCH ×2 (14:09→21:10)
[2016-07-10] MEDS ORDERED: PT OWN MED DRAWER 7, Y5N ONE ×2 (14:11→17:32)
[2016-07-10] MEDS: THIAMINE HCL 100 MG TABLET (FP) PO SCH (21:10)
[2016-07-10] MEDS: diphenhydrAMINE HCL 50 MG CAPSULE PO PRN (21:10)
[2016-07-11] MEDS: GABAPENTIN 400 MG CAPSULE (FP) PO SCH (05:52)
[2016-07-11] MEDS: CLINDAMYCIN HCL 300 MG CAPSULE PO SCH (05:52)
[2016-07-11 06:54] VITALS: BP 133/89; PULSE 87
[2016-07-11] MEDS ORDERED: PT OWN MED DRAWER 7, Y5N ONE (08:46)
[2016-07-11] MEDS: PANTOPRAZOLE 40 MG TABLET (FP) PO SCH (10:02)
[2016-07-11] MEDS: ASPIRIN 81 MG CHEWABLE TABLETS PO SCH (10:02)
[2016-07-11] MEDS: PATIENT'S OWN MEDICATION (NON-FORMULARY) (Dolutegravir Sodium 50 MG) PO SCH (10:02)
[2016-07-11] MEDS: LISINOPRIL 10 MG TABLET (FP) PO SCH (10:02)
[2016-07-11] MEDS: PRENATAL VITAMINS W/ FOLIC ACID TABLET (FP) PO SCH (10:02)
--- NOTE | 2016-07-11 10:36 | PN ---
Psychiatric Progress Note Vital Signs: Vital Signs Period Temp Pulse Resp BP Sys/Bosch Pulse Ox Last 24 Hr 98 F 87 18-18 133/89 Date of Session: 07/11/16 Chief Complaint:: AMA psychiatrist Discharge Note HPI: Patient addressing Alcohol, Opoid and Cocaine Dependence comorbid with Nicotine Dependence and Schizophrenia ROS: AIDS, HTN, Hep C, GERD, dry skin dermatitis were medically managed Current Medications: Active Medications Generic Name Dose Route Start Last Admin Trade Name Freq PRN Reason Stop Dose Admin Acetaminophen 650 mg 07/08/16 22:48 Tylenol - PO Q4H PRN FEVER OR PAIN Al Hydroxide/Mg Hydroxide 30 ml 07/08/16 22:48 Mylanta Oral Suspension - PO Q6H PRN DYSPEPSIA Aspirin 81 mg 07/09/16 10:00 07/11/16 10:02 Asa - PO 81 mg DAILY PETR Administration Clindamycin HCl 600 mg 07/08/16 15:15 07/11/16 05:52 Cleocin - PO 600 mg Q6HPO PETR Administration Diphenhydramine HCl 50 mg 07/08/16 22:48 07/10/16 21:10 Benadryl - PO 50 mg HSMR1 PRN Administration FOR ITCHING Eucalyptus/Menthol/Phenol/Sorbitol 1 each 07/08/16 22:48 Cepastat Lozenge - MM Q4H PRN SORE THROAT Gabapentin 400 mg 07/10/16 14:00 07/11/16 05:52 Neurontin - PO 400 mg TID PETR Administration Guaifenesin 10 ml 07/08/16 22:48 Robitussin Dm - PO Q6H PRN COUGH Hydroxyzine Pamoate 50 mg 07/08/16 22:48 Vistaril - PO Q4H PRN AGITATION Lisinopril 10 mg 07/09/16 10:00 07/11/16 10:02 Prinivil PO 10 mg DAILY PETR Administration Loperamide HCl 4 mg 07/08/16 22:48 Imodium - PO Q6H PRN DIARRHEA Magnesium Hydroxide 30 ml 07/08/16 22:48 Milk Of Magnesia - PO DAILY PRN CONSTIPATION Non-Formulary Medication 50 mg 07/09/16 10:00 07/11/16 10:02 Dolutegravir Sodium PO 50 mg DAILY PETR Administration Pantoprazole Sodium 40 mg 07/09/16 10:00 07/11/16 10:02 Protonix - PO 40 mg DAILY PETR Administration Multivit/Folic Acid/Iron 1 tab 07/09/16 10:00 07/11/16 10:02 Vitamins (Sjr) - PO 1 tab DAILY PETR Administration Pseudoephedrine/Triprolidine 1 combo 07/08/16 22:48 Actifed - PO TID PRN NASAL CONGESTION Thiamine HCl 100 mg 07/09/16 22:00 07/10/16 21:10 Vitamin B1 - PO 100 mg HS PETR Administration Current Side Effect: No Lab tests ordered: Yes Lab tests reviewed: Yes Provider note:: Patient wants to leave against medical advice citing non satisfaction with medical treatment. Told advertising copy writer that he has pain in his foot and that medication precribed for him to that effect is not giving him any relief. He said that he needs narcotic which the will not prescribe him here. He is determined to leave against medical advice despite encouragement to stay and complete this program. He is stable for discharge today Total face to face time:: 25 Mental Status Exam - Mental Status Exam Alert and Oriented to: Time, Place, Person Cognitive Function: Fair Patient Appearance: Well Groomed Mood: Hopeful, Euthymic Affect: Appropriate Patient Behavior: Cooperative Speech Pattern: Clear Voice Loudness: Normal Thought Process: Intact Thought Disorder: Not Present Hallucinations: Denies Suicidal Ideation: Denies Homicidal Ideation: Denies Insight/Judgement: Poor Sleep: Fair Appetite: Good Muscle strength/Tone: Normal Gait/Station: Normal Psychiatric Treatment Plan - Problem List (1) Alcohol dependence with uncomplicated withdrawal Current Visit: No (2) Opioid dependence Current Visit: No (3) Cocaine dependence, uncomplicated Current Visit: No (4) Nicotine dependence Current Visit: No Qualifiers: Nicotine product type: cigarettes Substance use status: in withdrawal Qualified Code(s): F17.213 - Nicotine dependence, cigarettes, with withdrawal (5) Schizophrenia Current Visit: Yes (6) AIDS (acquired immune deficiency syndrome) Current Visit: No (7) History of Kaposi's sarcoma Current Visit: No (8) GERD (gastroesophageal reflux disease) Current Visit: No (9) Hepatitis C virus infection without hepatic coma Current Visit: No Qualifiers: Viral hepatitis chronicity: chronic Qualified Code(s): B18.2 - Chronic viral hepatitis C (10) Hypertension, essential Current Visit: No (11) Type 2 diabetes mellitus Current Visit: No Qualifiers: Diabetes mellitus complication status: without complication Comment: BLOOD SUGAR CURRENTLY UNDER CONTROL AND NOT TAKING METFORMIN 500 MG PO DAILY ANYMORE PER PATIENT. (12) Dry skin dermatitis Current Visit: No Initial treatment plan: Patient is leaving AMA today
== END 2016-07-11 10:50 | disposition left against medical advice (07) | DRG 770 ==
LOC: YASAS 12:59 → Y3W 13:00
PROVIDERS: ADMIT Psychiatry & Neurology Psychiatry; ATTEND Psychiatry & Neurology Psychiatry
PROC: HZ42ZZZ Group Counseling for Substance Abuse Treatment, Cognitive-Behavioral (ICD-10-PCS; principal; 2016-07-08)
DX: F11.20 Opioid dependence, uncomplicated (principal); F10.20 Alcohol dependence, uncomplicated; F14.20 Cocaine dependence, uncomplicated; F17.210 Nicotine dependence, cigarettes, uncomplicated; F20.9 Schizophrenia, unspecified; B20 Human immunodeficiency virus [HIV] disease; B18.2 Chronic viral hepatitis C; I10 Essential (primary) hypertension; L21.9 Seborrheic dermatitis, unspecified; L85.3 Xerosis cutis; Z85.831 Personal history of malignant neoplasm of soft tissue

== ENCOUNTER 2016-11-08 12:43 | Inpatient (IN) | payer OTHER ==
[2016-11-08 13:07] VITALS: BMI 26.6
--- NOTE | 2016-11-08 15:51 | HP ---
CIWA Score - CIWA Score Nausea/Vomitin Muscle Tremors: 3 Anxiety: 3 Agitation: 3 Paroxysmal Sweats: 2 Orientation: 0-Oriented Tacttile Disturbances: 2-Mild Itch/Numbness/Burn Auditory Disturbances: 2-Mild Harshness/Frighten Visual Disturbances: 2-Mild Sensitivity Headache: 2-Mild CIWA-Ar Total Score: 22 Admission ROS [facility] - HPI Chief Complaint: i need help to sop drinking alcohol,cocaine,heroin, Allergies/Adverse Reactions: Allergies Allergy/AdvReac Type Severity Reaction Status Date / Time zidovudine [From Retrovir] Allergy Severe Hives Verified 11/08/16 16:01 History of Present Illness: this 61 years old male with alcohol,cocaine dependence,heroin abused,seeking detox,last detox [facility] 07/08/16 to syncope nicotine dependence multiples admissions in detox keep relapsing longest period of sobriety 2 years Exam Limitations: No Limitations - Ebola screening Have you traveled outside of the country in the last 21 days: No Have you had contact with anyone from an Ebola affected area: No Have you been sick,other than usual withdrawal symptoms: No Do you have a fever: No - Review of Systems Constitutional: Chills, Diaphoresis, Loss of Appetite, Malaise, Night Sweats, Changes in sleep, Weakness EENT: reports: Tearing, Nose Congestion Respiratory: reports: No Symptoms reported Cardiac: reports: Palpitations GI: reports: Diarrhea, Nausea, Vomiting, Abdominal cramping Musculoskeletal: reports: No Symptoms Reported Integumentary: reports: Dryness Neuro: reports: Headache, Tremors Endocrine: reports: No Symptoms Reported Hematology: reports: No Symptoms Reported, Other (hiv since 1990) Psychiatric: reports: No Sypmtoms Reported, Judgement Intact, Mood/Affect Appropiate, Anxious, Depressed Patient History - Patient Medical History Hx Anemia: No Hx Asthma: No Hx Chronic Obstructive Pulmonary Disease (COPD): No Hx Cancer: No Hx Cardiac Disorders: No Hx Congestive Heart Failure: No Hx Hypertension: Yes (norvsac 10 mgs po daily) Hx Hypercholesterolemia: No Hx Pacemaker: No HX Cerebrovascular Accident: No Hx Seizures: No Hx Dementia: No Hx Diabetes: Yes (diet control) Hx Gastrointestinal Disorders: No Hx Liver Disease: No Hx Genitourinary Disorders: No Hx Sexually Transmitted Disorders: No Hx Renal Disease (ESRD): No Hx Thyroid Disease: No Hx Human Immunodeficiency Virus (HIV): Yes (SINCE 1990;DX AIDS) Hx Hepatitis C: Yes (FAILED [place]) Hx Depression: Yes (no medication) Hx Suicide Attempt: No Hx Bipolar Disorder: No Hx Schizophrenia: No Other Medical History: no suicidal,no homiidal,kaposi sarcoma on chemo for 2 years stopped 2 years - Patient Surgical History Past Surgical History: No Hx Neurologic Surgery: No Hx Cataract Extraction: No Hx Cardiac Surgery: No Hx Lung Surgery: No Hx Breast Surgery: No Hx Breast Biopsy: No Hx Abdominal Surgery: No Hx Appendectomy: No Hx Cholecystectomy: No Hx Genitourinary Surgery: No Hx Orthopedic Surgery: No Anesthesia Reaction: No - PPD History Previous Implant?: Yes Documented Results: Negative w/proof Date: 02/05/16 Results: 0 mm PPD to be Administered?: No - Smoking Cessation Smoking history: Current every day smoker Have you smoked in the past 12 months: Yes Aproximately how many cigarettes per day: 20 Cigars Per Day: 0 Hx Chewing Tobacco Use: No Initiated information on smoking cessation: Yes 'Breaking Loose' booklet given: 11/08/16 - Substances Abused Alcohol Route: Oral Frequency: Daily Amount used: 1-2 pints vodka Age of first use: 10 Date of Last Use: 11/07/16 Cocaine Route: Smoking Frequency: 3-6 times per week Amount used: $200 Age of first use: 12 Date of Last Use: 11/07/16 Heroin Route: Injection Frequency: 1-2 times per week Amount used: 2-3 bags Age of first use: 12 Date of Last Use: 11/05/16 Family Disease History - Family Disease History Family Disease History: Other: Father ( UNKNOWN CAUSE), Mother ( UNKNOWN CAUSE) Admission Physical Exam S - Vital Signs Vital Signs: Vital Signs - 24 hr 11/08/16 13:05 Temperature 97 F L Pulse Rate 106 H Respiratory 20 Rate Blood Pressure 152/99 - Physical General Appearance: Yes: Moderate Distress, Tremorous, Irritable, Sweating, Anxious HEENTM: Yes: Normocephalic, LEELA, Pharynx Normal Respiratory: Yes: Lungs Clear, Normal Breath Sounds, No Respiratory Distress Neck: Yes: Within Normal Limits Breast: Yes: Within Normal Limits Cardiology: Yes: Within Normal Limits, Regular Rhythm, Regular Rate, S1, S2 Abdominal: Yes: Within Normal Limits, Normal Bowel Sounds, Non Tender, Flat, Soft Genitourinary: Yes: Within Normal Limits Back: Yes: Muscle Spasm Musculoskeletal: Yes: Back pain, Muscle Pain Extremities: Yes: Within Normal Limits, Normal Range of Motion, Tremors Neurological: Yes: Within Normal Limits, farm forestry and garden workers II-XII NML intact, Fully Oriented, Alert, Motor Strength 5/5 Integumentary: Yes: Dry Lymphatic: Yes: Within Normal Limits - Diagnostic (1) Alcohol dependence with uncomplicated withdrawal Status: Acute (2) Schizophrenia Status: Chronic (3) AIDS (acquired immune deficiency syndrome) Status: Chronic (4) Cocaine dependence, uncomplicated Status: Acute (5) History of Kaposi's sarcoma Status: Chronic (6) Hypertension, essential Status: Chronic (7) Nicotine dependence Status: Acute Qualifiers: Nicotine product type: cigarettes Substance use status: in withdrawal Qualified Code(s): F17.213 - Nicotine dependence, cigarettes, with withdrawal (8) Type 2 diabetes mellitus Status: Chronic Qualifiers: Diabetes mellitus complication status: without complication Comment: BLOOD SUGAR CURRENTLY UNDER CONTROL AND NOT TAKING METFORMIN 500 MG PO DAILY ANYMORE PER PATIENT. (9) Neuropathy Status: Chronic (10) Weight loss Status: Acute Cleared for Admission [facility] - Detox or Rehab [facility] Level of Care: Medically Managed Detox Regimen/Protocol: Librium (urine for drug screening showed positive for cocaine,negative for opiate is negative,) [facility] Breath Alcohol Content Breath Alcohol Content: 0 Urine Drug Screen - Results Drug Screen Negative: No Urine Drug Screen Results: YAMINI-Cocaine
[2016-11-08] MEDS ORDERED: chlordiazePOXIDE HCL 25 MG CAPSULE PO ONE (16:17)
[2016-11-08] MEDS ORDERED: ACETAMINOPHEN 325 MG TABLET (FP) PO PRN (16:17)
[2016-11-08] MEDS ORDERED: chlordiazePOXIDE HCL 25 MG CAPSULE PO PRN (16:17)
[2016-11-08] MEDS ORDERED: MENTHOL/PHENOL 1 EACH UD MM PRN (16:17)
[2016-11-08] MEDS ORDERED: hydrOXYzine PAMOATE 25 MG CAPSULE (FP) PO PRN (16:17)
[2016-11-08] MEDS ORDERED: IBUPROFEN 400 MG TABLET (FP) PO PRN (16:17)
[2016-11-08] MEDS ORDERED: LOPERAMIDE HCL 2 MG CAPSULE PO PRN (16:17)
[2016-11-08] MEDS ORDERED: guaiFENesin/D-METHORPHAN HB 10 ML UNIT-DOSE CUPS PO PRN (16:17)
[2016-11-08] MEDS ORDERED: MAGNESIUM HYDROX 2400MG/30ML ORAL SUSPENSION 30 ML CUP PO PRN (16:17)
[2016-11-08] MEDS ORDERED: MAG HYDROX/AL HYDROX/SIMETH 30 ML UNIT-DOSE CUP PO PRN (16:17)
[2016-11-08] MEDS ORDERED: MAGNESIUM CITRATE 300 ML BOTTLE PO PRN (16:17)
[2016-11-08] MEDS ORDERED: diphenhydrAMINE HCL 50 MG CAPSULE PO PRN (16:17)
[2016-11-08] MEDS ORDERED: P-EPHED 60MG/TRIPROLIDI 2.5MG TABLET PO PRN (16:17)
[2016-11-08] MEDS: chlordiazePOXIDE HCL 25 MG CAPSULE PO SCH ×2 (17:37→22:27)
[2016-11-08] MEDS ORDERED: THIAMINE HCL 100 MG TABLET (FP) PO SCH (22:00)
[2016-11-08 22:59] LABS: URINE APPEARANCE CLEAR; URINE BILIRUBIN NEGATIVE (NEGATIVE); URINE BLOOD 1+ (NEGATIVE); URINE COLOR DKYELLOW; URINE GLUCOSE (UA) NEGATIVE (NEGATIVE); URINE KETONE TRACE (NEGATIVE); URINE LEUK ESTERASE NEGATIVE (NEGATIVE); URINE NITRITE NEGATIVE (NEGATIVE); URINE UROBILINOGEN 4.0 E.U/dl mg/dL (0.2-1.0)
[2016-11-08 23:00] LABS: URINE PROTEIN 2+ (NEGATIVE)
[2016-11-08 23:02] LABS: GRANULAR CASTS 5 /lpf; URINE WBC <1 /hpf (3-5)
[2016-11-09] MEDS: chlordiazePOXIDE HCL 25 MG CAPSULE PO SCH ×2 (05:53→10:25)
--- NOTE | 2016-11-09 09:52 | CONSULT ---
[facility] Psychiatric Consult - Data Date of interview: 11/09/16 Admission source: [facility] Identifying data: One of multiple admissions to [facility] for this 61 y/o AA male seeking detox treatment for alcohol,cocaine and opiate dependence.Patient is single without children,domiciled,disabled and supported on SSI benefits.. Substance Abuse History: Fully discussed in this interview.Patient admits to using alcohol (vodka 1-2 pints/day) since age 10 - cocaine via smoking from age 13 onwards (100-250 dollars/weekly) - heroin via snorting (2-4 bags/day) since age 13.Smokes one pack of cigarettes daily.Substances were last used just prior to this [facility] visit. Medical History: No changes in medical profile since this underwriter solicitation director last met with the patient : HIV infection since 1990 (on ART agents),hepatitis C,GERD, hypertension,diabetes mellitus,neuropathy and a past history of Kaposi's sarcoma. Psychiatric History: Patient presents as a difficult,guarded and unconcerned historian.Declines to maintain eye contact.Provides approximate answers.Mr Perales endorses the diagnosis of paranoid schizophrenia and indicates recent treatment with olanzapine at the [facility].Stopped taking his medications a week ago (self-report).History of psychiatric hospitalizations is suspected." I don't remember the names of those places ",a reference to institutions.Patient denies history of suicide attempts. Physical/Sexual Abuse/Trauma History: Patient denies. Additional Comment: Urine Drug Screen Results: YAMINI-Cocaine.Noted. Mental Status Exam - Mental Status Exam Alert and Oriented to: Time, Place, Person Cognitive Function: Good Patient Appearance: Unkempt, Disheveled Mood: Withdrawn Affect: Blunted Patient Behavior: Fatigued, Guarded Speech Pattern: Clear, Delayed Voice Loudness: Normal Thought Process: Goal Oriented Thought Disorder: Bizarre Hallucinations: Denies Suicidal Ideation: Denies Homicidal Ideation: Denies Insight/Judgement: Poor Sleep: Poorly, Difficulty falling asleep Appetite: Good Muscle strength/Tone: Normal Gait/Station: Normal Psychiatric Findings - Problem List ([place] 1, 2,3) (1) Alcohol dependence with uncomplicated withdrawal Current Visit: Yes Status: Acute (2) Cocaine dependence, uncomplicated Current Visit: Yes Status: Acute (3) Nicotine dependence Current Visit: Yes Status: Acute Qualifiers: Nicotine product type: cigarettes Substance use status: in withdrawal Qualified Code(s): F17.213 - Nicotine dependence, cigarettes, with withdrawal (4) Substance induced mood disorder Current Visit: Yes Status: Acute (5) Schizophrenia Current Visit: Yes Status: Chronic (6) Neuropathy Current Visit: Yes Status: Chronic (7) AIDS (acquired immune deficiency syndrome) Current Visit: Yes Status: Chronic (8) GERD (gastroesophageal reflux disease) Current Visit: Yes Status: Chronic (9) Hepatitis C virus infection without hepatic coma Current Visit: Yes Status: Chronic Qualifiers: Viral hepatitis chronicity: chronic Qualified Code(s): B18.2 - Chronic viral hepatitis C (10) History of Kaposi's sarcoma Current Visit: Yes Status: Chronic (11) Hypertension, essential Current Visit: Yes Status: Chronic (12) Type 2 diabetes mellitus Current Visit: Yes Status: Chronic Qualifiers: Diabetes mellitus complication status: without complication Comment: BLOOD SUGAR CURRENTLY UNDER CONTROL AND NOT TAKING METFORMIN 500 MG PO DAILY ANYMORE PER PATIENT. (13) Insomnia Current Visit: Yes Status: Acute - Initial Treatment Plan Initial Treatment Plan: Psychoeducation.Patient is willing to resume olanzapine and lexapro.Will start zyprexa 5 mg po hs + lexapro 10 mg po daily (confirmed by review of recent pharmacy claims of 08/28/16 at [facility]).Side effects/benefits discussed with the patient,including potential for metabolic syndrome,suicidal ideation and sexual dysfunction.Mr Perales is in agreement with this plan of care.Observation.
[2016-11-09] MEDS ORDERED: EMTRICITABINE 200MG/TENOFOVIR 300MG PO SCH (10:00)
[2016-11-09] MEDS ORDERED: PRENATAL VITAMINS W/ FOLIC ACID TABLET (FP) PO SCH (10:00)
[2016-11-09] MEDS ORDERED: NICOTINE 21 MG/24 HOURS TOPICAL PATCH TD SCH (10:00)
[2016-11-09] MEDS ORDERED: HYDROCHLOROTHIAZIDE 12.5 MG CAPSULE (FP) PO SCH (10:00)
[2016-11-09] MEDS ORDERED: ASPIRIN 81 MG CHEWABLE TABLETS PO SCH (10:00)
[2016-11-09] MEDS ORDERED: LISINOPRIL 20 MG TABLET (FP) PO SCH (10:00)
[2016-11-09 10:03] LABS: MCH 33.3 pg (25.7-33.7); MCHC 35.5 g/dl (32.0-35.9); MEAN CELL VOLUME 93.6 fl (80-96); MEAN PLT VOLUME 9.2 fl (7.5-11.1); RDW 14.9 % (11.9-15.9); WHITE BLOOD COUNT 5.5 K/mm3 (4.0-10.0)
[2016-11-09 10:04] LABS: ALBUMIN 2.8 g/dl (3.4-5.0); ANION GAP 10 (8-16); CALCIUM 8.4 mg/dL (8.5-10.1); CO2 26 mmol/L (21-32); CREATININE 0.6 mg/dL (0.7-1.3)
[2016-11-09 10:05] LABS: ALK PHOS 116 U/L (45-117)
[2016-11-09 10:12] LABS: GLUCOSE,RANDOM 124 mg/dL (74-106)
[2016-11-09 10:13] LABS: SGOT/AST 126 U/L (15-37); SGPT/ALT 79 U/L (12-78); TOT PROT 7.2 g/dl (6.4-8.2)
--- NOTE | 2016-11-09 12:04 | PN ---
[facility] CIWA - CIWA Score Nausea/Vomitin-No Nausea/No Vomiting Muscle Tremors: 4-Moderate,w/Arms Extend Anxiety: 4-Mod. Anxious/Guarded Agitation: 4-Moderately Restless Paroxysmal Sweats: 1-Minimal Palms Moist Orientation: 0-Oriented Tacttile Disturbances: 3-Moderate Itch/Numb/Burn Auditory Disturbances: 0-None Visual Disturbances: 0-None Headache: 0-None Present CIWA-Ar Total Score: 16 [facility]HS Progress Note (SOAP) Subjective: TREMORS,ANXIETY,SWEATS. Objective: 11/09/16 12:00 Vital Signs Temperature 97.0 F L 11/09/16 10:03 Pulse Rate 94 H 11/09/16 10:03 Respiratory Rate 18 11/09/16 10:03 Blood Pressure 167/104 11/09/16 10:03 O2 Sat by Pulse Oximetry (%) Laboratory Last Values WBC 5.5 K/mm3 (4.0-10.0) D 11/09/16 07:30 RBC 4.04 M/mm3 (4.00-5.60) 11/09/16 07:30 Hgb 13.5 GM/dL (11.7-16.9) 11/09/16 07:30 Hct 37.9 % (35.4-49) 11/09/16 07:30 MCV 93.6 fl (80-96) 11/09/16 07:30 MCH 33.3 pg (25.7-33.7) 11/09/16 07:30 MCHC 35.5 g/dl (32.0-35.9) 11/09/16 07:30 RDW 14.9 % (11.9-15.9) D 11/09/16 07:30 MPV 9.2 fl (7.5-11.1) 11/09/16 07:30 Sodium 141 mmol/L (136-145) 11/09/16 07:30 Potassium 3.5 mmol/L (3.5-5.1) 11/09/16 07:30 Chloride 105 mmol/L (98-107) 11/09/16 07:30 Carbon Dioxide 26 mmol/L (21-32) 11/09/16 07:30 Anion Gap 10 (8-16) 11/09/16 07:30 BUN 11 mg/dL (7-18) D 11/09/16 07:30 Creatinine 0.6 mg/dL (0.7-1.3) L 11/09/16 07:30 Creat Clearance w eGFR > 60 (>60) 11/09/16 07:30 Random Glucose 124 mg/dL (74-106) H 11/09/16 07:30 Calcium 8.4 mg/dL (8.5-10.1) L 11/09/16 07:30 Total Bilirubin 1.0 mg/dL (0.2-1.0) D 11/09/16 07:30 AST 126 U/L (15-37) H D 11/09/16 07:30 ALT 79 U/L (12-78) H D 11/09/16 07:30 Alkaline Phosphatase 116 U/L (45-117) D 11/09/16 07:30 Total Protein 7.2 g/dl (6.4-8.2) 11/09/16 07:30 Albumin 2.8 g/dl (3.4-5.0) L 11/09/16 07:30 Urine Color Dkyellow 11/08/16 22:50 Urine Appearance Clear 11/08/16 22:50 Urine pH 5.0 (5.0-8.0) 11/08/16 22:50 Urine Protein 2+ (NEGATIVE) H 11/08/16 22:50 Urine Glucose (UA) Negative (NEGATIVE) 11/08/16 22:50 Urine Ketones Trace (NEGATIVE) H 11/08/16 22:50 Urine Blood 1+ (NEGATIVE) H 11/08/16 22:50 Urine Nitrite Negative (NEGATIVE) 11/08/16 22:50 Urine Bilirubin Negative (NEGATIVE) 11/08/16 22:50 Urine Urobilinogen 4.0 e.u/dl mg/dL (0.2-1.0) 11/08/16 22:50 Ur Leukocyte Esterase Negative (NEGATIVE) 11/08/16 22:50 Urine RBC None /hpf (0-3) 11/08/16 22:50 Urine WBC <1 /hpf (3-5) 11/08/16 22:50 Granular Casts 5 /lpf 11/08/16 22:50 Assessment: 11/09/16 12:00 WITHDRAWAL SX Plan: CONTINUE DETOX INCREASE PO FLUIDS. REPEAT LIVER ENZYME- ALT AND AST;INR IN AM.
[2016-11-09 13:54] VITALS: BP 149/90; PULSE 90; TEMP 98.2
[2016-11-09 15:44] LABS: PLATELET COUNT 116 K/MM3 (134-434); PLATELET ESTIMATE DECREASED (NORMAL)
[2016-11-09] MEDS ORDERED: chlordiazePOXIDE HCL 25 MG CAPSULE PO SCH (17:00)
[2016-11-09] MEDS ORDERED: OLANZapine 5 MG TABLET PO SCH (22:00)
--- NOTE | 2016-11-09 23:46 | DS ---
[facility] Detox Discharge Summary Admission Date: 11/08/16 Discharge Date: 11/09/16 - History Present History: Cannabis Dependence, Cocaine Dependence - Physical Exam Results Vital Signs: Vital Signs Temperature 98.2 F 11/09/16 13:53 Pulse Rate 90 11/09/16 13:53 Respiratory Rate 18 11/09/16 13:53 Blood Pressure 149/90 11/09/16 13:53 O2 Sat by Pulse Oximetry (%) - Treatment Hospital Course: Discharged Condition Good - Medication Discharge Medications: Ambulatory Orders Aspirin [ASA -] 81 mg PO DAILY 07/04/16 Risperidone [Risperdal] 2 mg PO BID 07/04/16 Emtricitabine/Tenofovir (Tdf) [Truvada 200 mg-300 mg Tablet] 1 each PO DAILY 06/22 Hydrochlorothiazide [Hctz -] 12.5 mg PO DAILY 11/08/16 Lisinopril [Prinivil] 20 mg PO DAILY 11/08/16 Sertraline HCl [Zoloft] 100 mg PO DAILY 11/08/16 Escitalopram Oxalate [Lexapro -] 10 mg PO DAILY #30 tablet 11/09/16 Olanzapine [Zyprexa -] 5 mg PO HS #30 tablet 11/09/16 - Diagnosis (1) Alcohol dependence with uncomplicated withdrawal Status: Acute (2) Cocaine dependence, uncomplicated Status: Acute (3) Nicotine dependence Status: Acute Qualifiers: Nicotine product type: cigarettes Substance use status: in withdrawal Qualified Code(s): F17.213 - Nicotine dependence, cigarettes, with withdrawal (4) Weight loss Status: Acute (5) AIDS (acquired immune deficiency syndrome) Status: Chronic (6) GERD (gastroesophageal reflux disease) Status: Chronic (7) Hepatitis C virus infection without hepatic coma Status: Chronic Qualifiers: Viral hepatitis chronicity: chronic Qualified Code(s): B18.2 - Chronic viral hepatitis C (8) History of Kaposi's sarcoma Status: Chronic (9) Hypertension, essential Status: Chronic (10) Neuropathy Status: Chronic (11) Type 2 diabetes mellitus Status: Chronic Qualifiers: Diabetes mellitus complication status: without complication (12) Alcohol dependence with withdrawal Status: Acute Qualifiers: Complication of substance-induced condition: uncomplicated Qualified Code(s): F10.230 - Alcohol dependence with withdrawal, uncomplicated - AMA Did Patient Leave Against Medical Advice: Yes
--- NOTE | 2016-11-10 08:16 | EKG ---
Test Reason : Blood Pressure : / mmHG Vent. Rate : 102 BPM Atrial Rate : 102 BPM P-R Int : 186 ms QRS Dur : 092 ms QT Int : 364 ms P-R-T Axes : 059 053 041 degrees QTc Int : 474 ms SINUS TACHYCARDIA POSSIBLE LEFT ATRIAL ENLARGEMENT BORDERLINE ECG WHEN COMPARED WITH ECG OF 04-JUL-2016 14:23, NONSPECIFIC T WAVE ABNORMALITY NO LONGER EVIDENT IN LATERAL LEADS Confirmed by JASVIR MITCHELL, FLORIAN ([id number]) on 11/10/2016 8:15:38 AM Referred By: Joby Goel Confirmed By:FLORIAN TAY MD
[2016-11-10] MEDS ORDERED: ESCITALOPRAM OXALATE 10 MG TABLET (FP) PO SCH (10:00)
[2016-11-10] MEDS ORDERED: chlordiazePOXIDE 5 MG CAPSULE PO SCH (17:00)
[2016-11-11] MEDS ORDERED: chlordiazePOXIDE HCL 10 MG CAPSULE PO SCH (17:00)
== END 2016-11-09 16:50 | disposition left against medical advice (07) | DRG 770 ==
LOC: YASAS 12:43 → Y3N 16:39
PROVIDERS: ADMIT Internal Medicine; ATTEND Internal Medicine
PROC: HZ2ZZZZ Detoxification Services for Substance Abuse Treatment (ICD-10-PCS; principal; 2016-11-08)
DX: F10.230 Alcohol dependence with withdrawal, uncomplicated (principal); F14.20 Cocaine dependence, uncomplicated; F17.213 Nicotine dependence, cigarettes, with withdrawal; F20.9 Schizophrenia, unspecified; F19.24 Other psychoactive substance dependence with psychoactive substance-induced mood disorder; B20 Human immunodeficiency virus [HIV] disease; B18.2 Chronic viral hepatitis C; K21.9 Gastro-esophageal reflux disease without esophagitis; I10 Essential (primary) hypertension; C46.9 Kaposi's sarcoma, unspecified; G62.9 Polyneuropathy, unspecified; E11.9 Type 2 diabetes mellitus without complications; G47.00 Insomnia, unspecified; Z87.898 Personal history of other specified conditions; Z88.8 Allergy status to other drugs, medicaments and biological substances
CPT/HCPCS: 36415; 80053; 81003; 81015; 85027; 86593; 93005; 93010